=== PATIENT | female | born 1985 | race Asian ===

== ENCOUNTER 2016-09-13 10:52 | Emergency (ER) | payer OTHER ==
[~2016-09-13] VITALS: Ht 160 cm; Wt 82.4 kg
[2016-09-13 12:48] VITALS: BP 122/68; TEMP 98.4
== END 2016-09-13 12:55 | disposition home or self-care (01) ==
LOC: ED 10:52
DX: H92.03 Otalgia, bilateral (principal)
CPT/HCPCS: 99281

== ENCOUNTER 2016-10-18 14:26 | Emergency (ER) | payer OTHER ==
[~2016-10-18] VITALS: Ht 160 cm; Wt 79.4 kg
[2016-10-18 14:38] VITALS: TEMP 99
[2016-10-18 15:37] VITALS: BP 120/68
== END 2016-10-18 15:39 | disposition home or self-care (01) ==
LOC: ED 14:26
DX: J30.9 Allergic rhinitis, unspecified (principal)
CPT/HCPCS: 99282

== ENCOUNTER 2016-11-18 14:32 | Emergency (ER) | payer OTHER ==
[~2016-11-18] VITALS: Ht 160 cm; Wt 86.2 kg
[2016-11-18 14:41] VITALS: BP 120/81; TEMP 98.8
[2016-11-18 15:19] LABS: PLATELET COUNT 330 K/uL (152-353)
== END 2016-11-18 16:30 | disposition home or self-care (01) ==
LOC: ED 14:32
DX: R10.9 Unspecified abdominal pain (principal)
CPT/HCPCS: 80053; 81000; 81025; 85027; 99284

== ENCOUNTER 2017-05-29 07:33 | Emergency (ER) | payer OTHER ==
[~2017-05-29] VITALS: Ht 165.1 cm; Wt 77.1 kg
[2017-05-29 08:58] LABS: PLATELET COUNT 345 K/uL (152-353)
[2017-05-29 09:04] LABS: POTASSIUM 4.1 mmol/L (3.6-5.2); SODIUM 138 mmol/L (136-145)
[2017-05-29 14:35] VITALS: BP 118/78; TEMP 98.6
== END 2017-05-29 15:00 | disposition home or self-care (01) ==
LOC: ED 07:33
PROVIDERS: Family Medicine
DX: R10.31 Right lower quadrant pain (principal); D25.9 Leiomyoma of uterus, unspecified
CPT/HCPCS: 36415; 80053; 81000; 85027; 99283

== ENCOUNTER 2017-10-30 13:22 | Emergency (ER) | payer OTHER ==
[~2017-10-30] VITALS: Ht 160 cm; Wt 99.8 kg
[2017-10-30 13:32] VITALS: BP 133/78; TEMP 98.4
== END 2017-10-30 13:30 | disposition home or self-care (01) ==
LOC: ED 13:22
DX: M79.672 Pain in left foot (principal); M79.671 Pain in right foot
CPT/HCPCS: 99281

== ENCOUNTER 2018-01-28 12:40 | Emergency (ER) | payer OTHER ==
[~2018-01-28] VITALS: Ht 160 cm; Wt 77.1 kg
[2018-01-28 12:45] VITALS: TEMP 98.1
[2018-01-28 13:11] LABS: PLATELET COUNT 366 K/uL (152-353)
[2018-01-28 13:50] LABS: POTASSIUM 3.7 mmol/L (3.6-5.2)
[2018-01-28 14:39] VITALS: BP 132/80
== END 2018-01-28 14:39 | disposition home or self-care (01) ==
LOC: ED 12:40
DX: J02.9 Acute pharyngitis, unspecified (principal)
CPT/HCPCS: 36415; 80053; 85027; 86308; 87081; 87880; 99283

== ENCOUNTER 2018-06-19 12:16 | Emergency (ER) | payer OTHER ==
[~2018-06-19] VITALS: Ht 160 cm; Wt 79.4 kg
[2018-06-19 12:20] VITALS: TEMP 97.7
[2018-06-19 13:29] LABS: PLATELET COUNT 293 K/uL (152-353)
[2018-06-19 14:02] LABS: POTASSIUM 4.4 mmol/L (3.6-5.2)
[2018-06-19 14:10] VITALS: BP 140/84
== END 2018-06-19 14:35 | disposition home or self-care (01) ==
LOC: ED 12:16
PROVIDERS: Family Medicine
DX: J30.9 Allergic rhinitis, unspecified (principal); J06.9 Acute upper respiratory infection, unspecified
CPT/HCPCS: 36415; 80053; 85027; 87077; 87081; 87185; 87186; 87880; 99283

== ENCOUNTER 2018-07-22 02:40 | Emergency (ER) | payer OTHER ==
[~2018-07-22] VITALS: Ht 160 cm; Wt 79.4 kg
[2018-07-22 03:21] LABS: PLATELET COUNT 326 K/uL (152-353)
[2018-07-22 03:34] LABS: POTASSIUM 4.6 mmol/L (3.6-5.2)
[2018-07-22 03:56] VITALS: BP 116/71; TEMP 98.8
== END 2018-07-22 03:58 | disposition home or self-care (01) ==
LOC: ED 02:40
DX: J04.0 Acute laryngitis (principal)
CPT/HCPCS: 36415; 80053; 85027; 87502; 87651; 99283

== ENCOUNTER 2018-12-02 17:59 | Emergency (ER) | payer OTHER ==
[~2018-12-02] VITALS: Ht 160 cm; Wt 87.1 kg
[2018-12-02 20:03] VITALS: BP 144/92; TEMP 97.9
== END 2018-12-02 20:06 | disposition home or self-care (01) ==
LOC: ED 17:59
DX: J02.9 Acute pharyngitis, unspecified (principal); J30.9 Allergic rhinitis, unspecified
CPT/HCPCS: 87502; 87651; 99283

== ENCOUNTER 2020-11-14 16:54 | Emergency (ER) | payer OTHER ==
[~2020-11-14] VITALS: Ht 160 cm; Wt 81.6 kg
[2020-11-14 19:56] LABS: PLATELET COUNT 345 K/uL (152-353)
[2020-11-14 20:02] LABS: SODIUM 137 mmol/L (136-145)
[2020-11-14 20:50] VITALS: BP 112/61; TEMP 98.8
== END 2020-11-14 20:50 | disposition home or self-care (01) ==
LOC: ED 16:54
PROVIDERS: Hospitalist
DX: R07.89 Other chest pain (principal); K21.9 Gastro-esophageal reflux disease without esophagitis
CPT/HCPCS: 80053; 82550; 82553; 83690; 83880; 84484; 85027; 85610; 85730; 93005; 99283

== ENCOUNTER 2021-02-16 13:38 | Emergency (ER) | payer OTHER ==
[~2021-02-16] VITALS: Ht 160 cm; Wt 81.6 kg
[2021-02-16 13:53] VITALS: TEMP 98
[2021-02-16 14:46] VITALS: BP 135/68
== END 2021-02-16 14:47 | disposition home or self-care (01) ==
LOC: ED 13:38
DX: S16.1XXA Strain of muscle, fascia and tendon at neck level, initial encounter (principal); S46.811A Strain of other muscles, fascia and tendons at shoulder and upper arm level, right arm, initial encounter; V89.2XXA Person injured in unspecified motor-vehicle accident, traffic, initial encounter; Y92.488 Other paved roadways as the place of occurrence of the external cause
CPT/HCPCS: 96372; 99283; J1885

== ENCOUNTER 2021-06-28 04:43 | Emergency (ER) | payer OTHER ==
[~2021-06-28] VITALS: Ht 160 cm; Wt 108.9 kg
[2021-06-28 04:50] VITALS: TEMP 99.2
[2021-06-28 05:26] LABS: PLATELET COUNT 381 K/uL (152-353)
[2021-06-28 05:28] LABS: POTASSIUM 4.2 mmol/L (3.6-5.2)
[2021-06-28 07:24] VITALS: BP 118/75
== END 2021-06-28 07:24 | disposition home or self-care (01) ==
LOC: ED 04:43
PROVIDERS: Emergency Medicine Emergency Medical Services
DX: N83.292 Other ovarian cyst, left side (principal)
CPT/HCPCS: 36415; 80048; 81000; 85027; 96360; 96375; 99284; J1885; J2405; Q9963